=== PATIENT | female | born 1955 | race Asian ===

== ENCOUNTER 2017-05-24 18:43 | Emergency (ER) | payer MEDICAID, OTHER ==
[~2017-05-24] VITALS: Ht 162.6 cm; Wt 45.4 kg
[~2017-05-24 18:43] MED LIST: IBUPROFEN600 MG PO; NORCO 5-325 TA1 EACH ORAL
[2017-05-24] MEDS ORDERED: Morphine Sulfate 2mg/ml Inj IVP ONE (19:00)
--- NOTE | 2017-05-24 19:08 | Emergency Room Report ---
History of Present Illness General Chief Complaint: Lower Extremity Injury Source: Family Member, EMS Present Illness HPI patient is a 61-year-old female who suffered a fall at home today. She fell while trying to reach for a glass bowl which fell on the ground it shattered. The patient then put her right hand in the glass. This caused bleeding to the right palm. Additionally after the fall the patient was unable to move off the floor secondary to severe right hip pain with the inability to straighten the leg. She also hit her head however denies loss of consciousness. Patient is awake alert at this time in answering all questions appropriately. She is brought in by EMS in position of comfort which is the leg and hip held hyperflexed Allergies: Coded Allergies: No Known Allergies (Unverified , 12/23/13) Patient History Limited by: language barrier Past Medical History: see triage record Social History: Denies: alcohol use, drug use, smoking Nursing Documentation-[facility] Hx Hypertension: Yes Hx Cerebrovascular Accident: Yes Review of Systems Constitutional: Denies: chills, fever Eye: Denies: redness, vision loss ENT: Denies: earache, epistaxis Respiratory: Denies: shortness of breath, wheezing Cardiovascular: Denies: chest pain, palpitations Gastrointestinal/Abdominal: Denies: nausea, pain, vomiting Genitourinary: Denies: dysuria, hematuria Musculoskeletal: Reports: bone/joint pain, see HPI Skin: Reports: see HPI Neurological: Denies: focal weakness, headache, syncope Endocrine: Denies: polydispia, polyuria Hematologic/Lymphatic: Denies: adenopathy, bruising Physical Exam Vital Signs Date Time Temp Pulse Resp B/P Pulse Ox O2 Delivery O2 Flow Rate FiO2 05/24/17 18:46 88 16 128/75 95 Room Air Sp02 EP Interpretation: reviewed, normal General Appearance: alert, GCS 15 Head: normocephalic, atraumatic Eyes: normal eye exam, PERRL, EOMI, lids + conjunctiva normal, no hyphema, no racoon eyes ENT: normal ENT inspection, TMs + canals normal, oropharynx normal, no patel signs Neck: trach midline, no bony tend, full range of motion without pain Respiratory: effort normal, no retractions, clear to auscultation, chest symmetrical, palpation of chest normal, speaking in full sentences Cardiovascular: regular rate, rhythm, no JVD Gastrointestinal: normal inspection, non-tender, non-distended, no rebound/ guarding, normal bowel sounds Musculoskeletal: other - right lower extremity held hyperflexed at the hip and knee. Severe pain with any attempted movement. Left lower extremity, left upper extremity, right upper extremity with full range of motion no deformity Skin: other - laceration to the proximal palm right hand, or sonorous laceration to the distal palm just under fourth finger right hand Neurologic: CN II-XII intact, oriented x3, motor strength/tone normal Procedures Laceration/Wound Repair Laceration/Wound Repair : Consent: Verbal Wound Location: upper extremity Wound's Depth, Shape: superficial Wound Explored: no foreign body removed Irrigated w/ Saline (ccs): 500 Betadine Prep?: Yes Anesthesia: 1% Lidocaine Wound Repaired With: sutures Suture Size/Type: 5:0 Number of Sutures: 10 Layer Closure?: No Sterile Dressing Applied?: No Splint Applied?: No Sling Applied?: No Patient Tolerated: Well Complications: None Medical Decision Making Diagnostic Impression: Primary Impression: Hip fracture, right Qualified Codes: S72.001A - Fracture of unspecified part of neck of right femur, initial encounter for closed fracture Additional Impressions: Hand laceration Qualified Codes: S61.411A - Laceration without foreign body of right hand, initial encounter Fall Qualified Codes: W19.XXXA - Unspecified fall, initial encounter ER Course patient presents emergency department status post fall with obvious deformity of the right hip. X-rays Of the right hip interpreted by me show acute surgical neck fracture without dislocation or other fracture. Patient also received CT of the head laboratory studies which were unremarkable. Patient was noted to have lacerations to the right hand x-rays showed no evidence of foreign body and lacerations were sutured by me. This was discussed with orthopedics industrial relations worker however at this time and been told patient will require transfer for insurance purposes. patient will require transfer to [facility] Other X-Ray Diagnostic Results Other X-Ray Diagnostic Results : # of Views/Limited Vs Complete: 3 View Indication: Other - rule out foreign body EP Interpretation: Yes Interpretation: no dislocation, no fractures, other - No foreign body Interpreting ER Provider: Electronically signed by Dr. Bender CT/MRI/US Diagnostic Results CT/MRI/US Diagnostic Results : Impression CT head negative per radiology Last Vital Signs Date Time Temp Pulse Resp B/P Pulse Ox O2 Delivery O2 Flow Rate FiO2 05/24/17 18:46 88 16 128/75 95 Room Air Disposition: XFER SHT-TRM HOSP Condition: Serious NOBLE BENDER May 24, 2017 19:08
[2017-05-24] MEDS ORDERED: UNOBMED (19:19)
[2017-05-24 19:36] LABS: BASOPHILS % (AUTO) 0.6 % (0.0-2.0); EOSINOPHILS % (AUTO) 0.6 % (0.0-3.0); LYMPHOCYTES % (AUTO) 15.4 % (20.0-45.0); MEAN CORPUSCULAR HEMOGLOBIN 32.1 PG (27.0-31.0); MEAN CORPUSCULAR HGB CONC 34.4 G/DL (32.0-36.0); MEAN CORPUSCULAR VOLUME 93 FL (80-99); MEAN PLATELET VOLUME 6.4 FL (6.5-10.1); MONOCYTES % (AUTO) 5.1 % (1.0-10.0); NEUTROPHILS % (AUTO) 78.3 % (45.0-75.0); PLATELET COUNT 165 K/UL (150-450); RED BLOOD COUNT 3.76 M/UL (4.20-5.40); RED CELL DISTRIBUTION WIDTH 10.8 % (11.6-14.8); WHITE BLOOD COUNT 8.5 K/UL (4.8-10.8)
[2017-05-24 19:53] LABS: ALANINE AMINOTRANSFERASE 14 U/L (3-33); ALBUMIN/GLOBULIN RATIO 1.7 (1.0-2.7); ANION GAP 9 (5-15); ASPARTATE AMINO TRANSFERASE 19 U/L (5-40); CALCIUM 8.9 mg/dL (8.6-10.2); CARBON DIOXIDE 28 mEQ/L (20-30); CHLORIDE 99 mEQ/L (98-107); CREATININE 0.6 mg/dL (0.5-0.9); GLOMERULAR FILTRATION RATE > 60 mL/min (>60); HEMOLYSIS 10; POTASSIUM 3.5 mEQ/L (3.4-4.9); SODIUM 136 mEQ/L (135-145); TOTAL PROTEIN 6.4 g/dL (6.6-8.7)
[2017-05-24 20:00] VITALS: BP 129/79
[2017-05-24] MEDS ORDERED: Lidocaine 1% Plain 30 ml INJ ONE ×2 (20:53→21:00)
[2017-05-24 21:30] VITALS: BP 135/78
[2017-05-24] MEDS ORDERED: Bacitracin Oint UD TOPIC ONE (22:45)
[2017-05-24 23:00] VITALS: BP 114/61
--- NOTE | 2017-05-25 10:30 | Diagnostic Imaging Report ---
Indications: Head trauma Technique: Spiral acquisitions obtained through the brain. Angled axial and coronal 5 x 5 mm slices were reconstructed. Total dose length product 1397 mGycm. CTDI vol(s) 70 mGy. Dose reduction achieved using automated exposure control Comparison: 12/23/2013 Findings: Large left basal ganglia lacunar infarct is again demonstrated. Periventricular deep white matter chronic ischemic change is again demonstrated. Normal for age ventricles and extra-axial CSF spaces. Normal bullock-white differentiation. No acute hemorrhage or edema. No mass effect nor midline shift. Intact calvarium. Visualized orbits and sinuses are unremarkable. Impression: Chronic changes, including old left basal ganglia large lacunar infarct. Negative for acute intracranial bleed or mass effect. This agrees with the preliminary interpretation provided overnight by Dr. Blanc The CT scanner at [facility] is accredited by the [employer] and the scans are performed using protocols designed to limit radiation exposure to as low as reasonably achievable to attain images of sufficient resolution adequate for diagnostic evaluation.
--- NOTE | 2017-05-25 10:58 | Diagnostic Imaging Report ---
Indication: TRAUMA Technique: 2 views of the right hip Comparison: None Findings: There is a comminuted fracture of the right femoral neck. This is upwardly displaced by one bone width. No dislocations. Joint spaces are preserved. There is distention of the rectum by feces. No definite pelvic fracture demonstrated. Impression: Positive for right femoral neck fracture. Electronic medical record indicates this was recognized by the emergency room physician
--- NOTE | 2017-05-25 11:36 | Diagnostic Imaging Report ---
Indication: TRAUMA Technique: 3 views right hand Comparison: none Findings: The bones are osteoporotic. There is the ulnar subluxation and ulnar deviation of the second third and fourth proximal interphalangeal joints. There is mild joint space narrowing of the second third and fourth proximal interphalangeal joints, and of the second and third distal interphalangeal joints. There is considerable proliferative change of the second third and fourth proximal phalangeal joint, as well as degenerative remodeling of the corresponding proximal phalangeal heads. No acute fractures. No radiopaque foreign body Impression: No acute bony trauma Osteoporosis Evidence of arthropathy, as described. 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
== END 2017-05-24 23:00 | disposition short-term general hospital (02) ==
LOC: EDBD 18:43 → EMR 20:57
DX: S61.411A Laceration without foreign body of right hand, initial encounter (principal); S72.001A Fracture of unspecified part of neck of right femur, initial encounter for closed fracture; I10 Essential (primary) hypertension; Z86.73 Personal history of transient ischemic attack (TIA), and cerebral infarction without residual deficits; W01.110A Fall on same level from slipping, tripping and stumbling with subsequent striking against sharp glass, initial encounter; Y92.009 Unspecified place in unspecified non-institutional (private) residence as the place of occurrence of the external cause
CPT/HCPCS: 12001; 36415; 70450; 73130; 73502; 80053; 85025; 85610; 85730; 96374; 96375; 99284; J2001; J2270; J2405; Z7502